=== PATIENT | female | born 1985 | race Caucasian/White ===

== ENCOUNTER 2022-08-15 12:03 | Day surgery (SDC) | payer BC ==
[2022-08-14 13:55] VITALS: BMI 23.7
[2022-08-15] MEDS ORDERED: Lidocaine 1% MPF 2 ML VIAL ONE (12:59)
[2022-08-15 13:10] LABS: #Eosinphils 0.1 10x3/uL (0.0-0.5); #Monocytes 0.6 10x3/uL (0.0-1.1); #Neutrophils 5.7 10x3/uL (1.5-8.4); %Basophils 0.5 % (0.0-2.0); %Eosinophils 0.6 % (0.0-6.0); %Lymphocytes 24.7 % (18.0-47.0); %Monocytes 6.6 % (0.0-10.0); %Neutrophils 67.4 % (40.0-75.0); Hemoglobin 12.4 g/dL (12.0-15.5); Mean Corpuscular HGB CONC 34.9 g/dL (32.0-36.0); Mean Corpuscular Volume 91.7 fl (81.6-98.3); Mean Platelet Volume 8.7 fl (7.4-10.4); Platelet Count 216 10x3/uL (150-450); RBC Distribution Width 12.7 % (11.5-14.5); Red Blood Cell (RBC) Count 3.87 10x6/uL (3.90-5.03); White Blood Cell (WBC) Count 8.4 10x3/uL (3.5-10.5)
[2022-08-15] MEDS ORDERED: Famotidine/PF 20 mg/2ml Vial ONE (13:18)
[2022-08-15] MEDS ORDERED: Scopolamine 1.5 mg/72 hour Patch ONE (13:18)
[2022-08-15] MEDS ORDERED: Methylergonovine 0.2 MG/ML VIAL ONE ×2 (13:35→15:21)
[2022-08-15] MEDS ORDERED: CEFAZOLIN 1 GM VIAL ONE (14:20)
[2022-08-15] MEDS ORDERED: Ondansetron PF 4 MG/2 ML Vial ONE (14:21)
[2022-08-15] MEDS ORDERED: Lidocaine 2% PF 5 ML VIAL ONE (14:21)
[2022-08-15] MEDS ORDERED: Dexamethasone 4 mg/ml Vial ONE (14:21)
[2022-08-15] MEDS ORDERED: PROPOFOL 20 ML ONE (14:21)
[2022-08-15] MEDS ORDERED: Ketorolac Tromethamine 30 MG/ML VIAL ONE (14:21)
[2022-08-15] MEDS ORDERED: Fentanyl 100 MCG/2 ML VIAL ONE (14:21)
[2022-08-15] MEDS ORDERED: Methylergonovine 0.2 MG TAB PO SCH (15:45)
== END 2022-08-15 17:40 | disposition home or self-care (01) ==
LOC: CSHSDC 12:03
PROVIDERS: ATTEND Obstetrics & Gynecology
PROC: 10D17ZZ Extraction of Products of Conception, Retained, Via Natural or Artificial Opening (ICD-10-PCS; principal; 2022-08-15)
DX: O02.89 Other abnormal products of conception (principal)
CPT/HCPCS: 36415; 85025; J0690; J1100; J1885; J2001; J2210; J2405; J2704; J3010; S0028